=== PATIENT | male | born 1990 | race Two or more races ===

== ENCOUNTER 2022-04-18 01:25 | Emergency (ER) | payer OTHER ==
[~2022-04-18] VITALS: Ht 182.9 cm; Wt 93.6 kg
[2022-04-18 01:28] VITALS: BP 129/76
[2022-04-18] MEDS ORDERED: BACITRACIN 28 GM OINTMENT TP ONE (02:15)
[2022-04-18] MEDS ORDERED: KETOROLAC TROMETHAMINE 30 MG/ML VIAL IM ONE (02:15)
== END 2022-04-18 04:24 | disposition home or self-care (01) ==
LOC: EMS 01:26
DX: S50.11XA Contusion of right forearm, initial encounter (principal); S50.811A Abrasion of right forearm, initial encounter; F17.210 Nicotine dependence, cigarettes, uncomplicated; F12.90 Cannabis use, unspecified, uncomplicated; Z98.890 Other specified postprocedural states; W19.XXXA Unspecified fall, initial encounter; Y93.89 Activity, other specified; Y92.89 Other specified places as the place of occurrence of the external cause; Y99.8 Other external cause status
CPT/HCPCS: 99284; 73080; 73090; 73110; 96372; J1885